=== PATIENT | male | born 1960 | race Caucasian/White ===

== ENCOUNTER 2023-11-12 14:50 | Outpatient (CLI) | payer OTHER, SELFPAY ==
--- NOTE | 2023-11-12 15:30 | CRLHL7_ITS ---
For Patients: As a result of the Century Cures Act, medical imaging exams and procedure reports are released immediately into your electronic medical record. You may view this report before your referring provider. If you have questions, please contact your health care provider. INDICATION: Lumbar radiculopathy. TECHNIQUE : Lumbar spine MRI without contrast. COMPARISON: Lumbar spine MRI from 04/18/2015. FINDINGS : Transitional segment with bilateral transverse process sacral ala integration. Designated L5 on this report. Normal lumbar lordotic curve. No recent compression fracture or marrow replacing process. Lower cord/conus signal is normal. The conus terminates at a normal location. No intradural lesion. No extraspinal soft tissue abnormalities. Discs/Endplates: T12-L1 advanced disc height loss, disc desiccation Schmorl`s node deformities. Moderate disc height loss and disc desiccation L4-5. Mild disc degeneration elsewhere. Multiple small Schmorl`s node deformities. Type 1 reactive marrow changes at L4-5 on the left. Findings at individual levels as follows: T11-12: Mild disc bulge with shallow central protrusion. Mild spinal canal stenosis. No neural foramina stenosis. T12-L1: Trace retrolisthesis. Mild disc bulge. Bilateral low-grade facet arthrosis. Mild bilateral neural foraminal stenosis. Mild spinal canal stenosis. L1-2: Mild disc bulge with a shallow central protrusion containing an annular fissure. Bilateral low-grade facet arthrosis. Mild spinal canal stenosis and mild bilateral neural foraminal stenosis. L2-3: Mild disc bulge. Bilateral low-grade facet arthrosis. No spinal canal or neural foraminal stenosis. L3-4: Moderate disc bulge with a superimposed broad-based right subarticular to foraminal protrusion component. Bilateral low-grade facet arthrosis. No significant spinal canal stenosis. Mild left and moderate right neural foraminal stenosis. Right subarticular recess stenosis with impingement of the traversing right L4 nerve root. L4-5: Mild disc bulge. Superimposed shallow right central disc extrusion with slight caudal migration which contacts the traversing right L5 nerve root. Bilateral facet arthrosis, greater on the left. Mild spinal canal stenosis and bilateral subarticular recess stenosis with mild impingement of the traversing L5 nerve roots. Mild right and moderate left neural foraminal stenosis. L5-S1: No spinal canal or neural foraminal stenosis. Imaged SI joints: Within normal limits. Imaged sacrum: Within normal limits. IMPRESSION: 1. Transitional segment designated L5 on this report. 2. At L4-5, decreased size of the right central disc extrusion with slight caudal migration. The herniation now contacts the right L5 nerve root without lovely impingement. [id number]-right subarticular recess stenosis with mild impingement of the traversing left L5 nerve root, stable. Moderate left neural foraminal stenosis is also stable. 3. At L3-4, a new right subarticular to foraminal disc protrusion impinges the traversing right L4 nerve root and contributes to moderate right neural foraminal stenosis. 4. At L1-2, a new shallow central protrusion with annular fissure contributes to mild spinal canal stenosis. Dictated by Óscar Bah MD @ 11/13/2023 12:45:07 PM (Electronically Signed)
== END 2023-11-12 14:51 | disposition home or self-care (01) ==
LOC: MRI 14:51
PROVIDERS: Visit Provider Orthopaedic Surgery Sports Medicine
DX: M54.16 Radiculopathy, lumbar region (principal); M51.26 Other intervertebral disc displacement, lumbar region
CPT/HCPCS: 72148